=== PATIENT | female | born 1955 | race Caucasian/White ===

== ENCOUNTER 2023-04-16 13:50 | Emergency (ER) | payer MEDICAID, MEDICARE ==
[2023-04-16] MEDS ORDERED: Sodium Chloride 0.9% 10 ML Syringe FLUSH PRN (16:21)
[2023-04-16] MEDS ORDERED: Sodium Chloride 0.9% 1,000 ML IV ONE (16:21)
[2023-04-16 16:35] LABS: BASOPHILS ABSOLUTE AUTO 0.08 K/uL (0.00-0.10); BASOPHILS PERCENT AUTO 0.9 % (0.1-1.3); EOSINOPHILS ABSOLUTE AUTO 0.11 K/uL (0.00-0.40); EOSINOPHILS PERCENT AUTO 1.2 % (0.0-5.4); HEMATOCRIT 39.9 % (34.3-46.0); HEMOGLOBIN 13.9 g/dL (11.2-15.5); IMMATURE GRAN ABSOLUTE AUTO 0.05 K/uL (0.00-0.23); IMMATURE GRAN PERCENT AUTO 0.5 % (0.0-0.7); LYMPHOCYTES ABSOLUTE AUTO 1.97 K/uL (0.8-3.3); LYMPHOCYTES PERCENT AUTO 21.1 % (11.4-47.7); MEAN CORPUSCULAR HEMOGLOBIN 34.9 pg (31.6-35.5); MEAN CORPUSCULAR HGB CONC 34.8 g/dL (31.6-35.5); MEAN CORPUSCULAR VOLUME 100.3 fL (81.4-99.0); MONOCYTES ABSOLUTE AUTO 0.94 K/uL (0.20-0.90); MONOCYTES PERCENT AUTO 10.1 % (3.3-12.6); NEUTROPHILS ABSOLUTE AUTO 6.19 K/uL (1.0-7.6); NEUTROPHILS PERCENT AUTO 66.2 % (40.0-78.1); PLATELET COUNT,PLT 176 K/uL (130-375); RED BLOOD CELL COUNT 3.98 M/uL (3.77-5.24); WHITE BLOOD CELL COUNT,WBC 9.3 K/uL (3.2-11.0)
[2023-04-16 16:59] LABS: A/G RATIO 0.9 (1.2-2.2); ALANINE AMINOTRANSFERASE,ALT 25 U/L (12-78); ALBUMIN 3.3 g/dL (3.4-5.0); ALKALINE PHOSPHATASE 75 U/L (46-116); ASPARTATE AMNIOTRANSFERASE,AST 34 U/L (15-37); BLOOD UREA NITROGEN,BUN 16 mg/dL (7-18); C-REACTIVE PROTEIN 1.15 mg/dL (0.0-0.3); CALCIUM 8.8 mg/dL (8.5-10.1); CARBON DIOXIDE,CO2 27 mmol/L (21-32); CHLORIDE,CL 99 mmol/L (100-108); CREATININE 1.2 mg/dL (0.6-1.0); EST CRCL DRUG DOSING (CG) 38.66 mL/min; ESTIMATED GFR 50 mL/min (>60); GLUCOSE RANDOM 74 mg/dL (74-106); SODIUM,NA 137 mmol/L (140-148)
[2023-04-16] MEDS ORDERED: Iopamidol 612 MG/ML 100 ML Bottle IV ONE (17:17)
[2023-04-16] MEDS ORDERED: Sodium Chloride 0.9% 10 ML Syringe FLUSH ONE (17:17)
[2023-04-16] MEDS ORDERED: Sodium Chloride 0.9% 50 ML IV ONE (17:17)
== END 2023-04-16 19:06 | disposition home or self-care (01) ==
LOC: JP.ED 13:50
DX: K62.5 Hemorrhage of anus and rectum (principal); E78.00 Pure hypercholesterolemia, unspecified; I10 Essential (primary) hypertension; F17.210 Nicotine dependence, cigarettes, uncomplicated; Z79.899 Other long term (current) drug therapy; Z90.49 Acquired absence of other specified parts of digestive tract
CPT/HCPCS: 36415; 74177; 80053; 83605; 84484; 85025; 86140; 93005; 93010; 96360; 99283; 99284-25; J3490; J7030; Q9967

== ENCOUNTER 2024-01-24 06:52 | Day surgery (SDC) | payer MEDICARE ==
[2024-01-24] MEDS: Sodium Chloride 0.9% 1,000 ML IV SCH (07:12)
[2024-01-24] MEDS ORDERED: fentaNYL 50 MCG/ML SDV ONE (07:22)
[2024-01-24] MEDS ORDERED: Propofol 200 MG/20 ML SDV ONE (07:22)
[2024-01-24] MEDS ORDERED: Midazolam 1 MG/ML 2 ML SDV ONE (07:22)
== END 2024-01-24 09:20 | disposition home or self-care (01) ==
LOC: JP.SDS 06:52
PROVIDERS: ATTEND Surgery
DX: R19.7 Diarrhea, unspecified (principal); I10 Essential (primary) hypertension; E11.9 Type 2 diabetes mellitus without complications
CPT/HCPCS: 45380; J2250; J2704; J3010; J7030; 00811-QZ; 88305

== ENCOUNTER 2024-09-03 06:47 | Day surgery (SDC) | payer MEDICARE ==
[2024-09-03] MEDS: Sodium Chloride 0.9% 10 ML Syringe FLUSH PRN (07:37)
== END 2024-09-03 08:20 | disposition home or self-care (01) ==
LOC: JP.SDS 06:47
PROVIDERS: ATTEND Ophthalmology
DX: E11.36 Type 2 diabetes mellitus with diabetic cataract (principal); H25.12 Age-related nuclear cataract, left eye; H25.042 Posterior subcapsular polar age-related cataract, left eye; I10 Essential (primary) hypertension; E78.5 Hyperlipidemia, unspecified; F17.200 Nicotine dependence, unspecified, uncomplicated
CPT/HCPCS: 66984; V2632